=== PATIENT | female | born 1995 | race Hispanic/Latino ===

== ENCOUNTER 2018-09-25 11:06 | Day surgery (SDC) | payer OTHER | END 2018-09-25 11:07 | disposition home or self-care (01) | LOC: OR 11:06 ==

== ENCOUNTER 2020-03-09 23:17 | Outpatient (CLI) | payer OTHER ==
--- NOTE | 2020-03-10 01:17 | Ultrasound Report ---
BIOPHYSICAL PROFILE HISTORY: Decreased movement. FINDINGS: Biophysical profile was performed and is normal at 8/8. heart tones are 138 bpm. IMPRESSION: Normal biophysical profile. Signer Name: Glenn Nazario MD Signed: 03/10/2020 1:13 AM Workstation Name: [id number]
== END 2020-03-10 01:14 | disposition home or self-care (01) ==
LOC: TRG 23:17 → APU 23:22 → TRG 03-10 01:14
PROVIDERS: ATTEND Obstetrics & Gynecology
DX: O36.8130 Decreased fetal movements, third trimester, not applicable or unspecified (principal); Z3A.37 37 weeks gestation of pregnancy
CPT/HCPCS: 59025; 76819

== ENCOUNTER 2020-03-20 20:27 | Inpatient (IN) | payer OTHER ==
[2020-03-20] MEDS ORDERED: ACETAMINOPHEN 325 MG TAB PO PRN (21:03)
[2020-03-20] MEDS ORDERED: AMPICILLIN/NS 2 GM/100 ML 2 GM/100 ML BAG IV ONE (21:03)
[2020-03-20] MEDS ORDERED: TERBUTALINE 1 MG/1 ML INJ SUB-Q PRN (21:03)
[2020-03-20] MEDS ORDERED: LIDOCAINE (2%) 20 MG/1 ML VIAL 20 ML MDV INFILTRATI ONE (21:03)
[2020-03-20] MEDS ORDERED: fentaNYL 100 MCG/2 ML INJ IV PRN (21:03)
--- NOTE | 2020-03-20 21:21 | History and Physical Report ---
History of Present Illness Date of examination: 03/20/20 Date of admission: 03/20/20 20:27 Chief complaint: Induction of labor. History of present illness: 24 year old presents for scheduled induction of labor. Patient has received care at [facility] and records are available. LMP 06/20/19. EDC 03/26/2020. significant for the following: Elevated YANIRA, GBS positive. labs are as follows: A+, antibody screen negative, rubella equivocal, RPR nonreactive, HIV negative, hepatitis B surface antigen negative, gonorrhea negative, chlamydia negative, 1 hour diabetes screen 92, GBS positive. Past History Past Medical History: other (obesity) Past Surgical History: tonsillectomy, [facility] History: denies: abnormal PAP smear, chlamydia, gonorrhea, hepatitis B, hepatitis C, herpes, HIV, syphilis, trichomonas Family/Genetic History: hypertension Social history: , lives with family, full code. denies: smoking, alcohol abuse, prescription drug abuse, IV drug use - Obstetrical History Expected Date of Delivery: 03/26/20 Actual Gestation: 39 Week(s) 1 Day(s) : 6 Para: 4 Hx # Term Pregnancies: 4 Number of Pregnancies: 0 Spontaneous Abortions: 1 Induced : 0 Number of Living Children: 4 Medications and Allergies Allergies Allergy/AdvReac Type Severity Reaction Status Date / Time No Known Allergies Allergy Unverified 09/24/18 14:44 Home Medications Medication Instructions Recorded Confirmed Last Taken Type Acetaminophen [Tylenol] 2 cap PO Q4H PRN 09/24/18 03/20/20 03/19/20 11:00 History Vit-Fe Fumar-FA [ 1 tab PO QDAY 03/20/20 03/20/20 03/20/20 09:00 History Vitamin] Active Meds: Active Medications Acetaminophen (Tylenol) 650 mg PO Q4H PRN PRN Reason: Pain, Mild (1-3) Ephedrine Sulfate (Ephedrine Sulfate) 10 mg IV Q2M PRN PRN Reason: Hypotension Fentanyl (Sublimaze) 100 mcg IV Q2H PRN PRN Reason: Pain,Severe (7-10) LABOR PAIN Oxytocin/Sodium Chloride (Pitocin/Ns 30 Unit/500ml) 30 units in 500 mls @ 2 mls/hr IV TITR ALEKSANDRA; Protocol Lactated Ringer's (Lactated Ringers) 1,000 mls @ 125 mls/hr IV DIRECT ALEKSANDRA Oxytocin/Sodium Chloride (Pitocin/Ns 20 Unit/1000ml Drip) 20 units in 1,000 mls @ 125 mls/hr IV DIRECT ALEKSANDRA Ampicillin Sodium (Ampicillin/Ns 2 Gm/100 Ml) 2 gm in 100 mls @ 100 mls/hr IV ONCE ONE; Protocol Stop: 03/20/20 22:02 Ampicillin Sodium (Ampicillin/Ns 1 Gm/50 Ml) 1 gm in 50 mls @ 100 mls/hr IV Q4HR ALEKSANDRA; Protocol Terbutaline Sulfate (Brethine) 0.25 mg SUB-Q ONCE PRN PRN Reason: Hyperstimulation/Hypertonicity Review of Systems All systems: negative (irregular mild contraction) - Vital Signs Vital signs: Vital Signs Pulse BP 96 H 121/64 03/20/20 20:59 03/20/20 20:59 Temp Pulse Resp BP Pulse Ox 98.5 F 96 H 18 121/64 03/20/20 21:00 03/20/20 21:00 03/20/20 21:00 03/20/20 21:00 - Physical Exam Abdomen: Positive: normal appearance, soft. Negative: distention, tenderness, guarding, rigidity Genitourinary (Female): Positive: normal external genitalia, normal perenium. Negative: perineal/vulvar lesions (no lesions noted on exam under bright light upon admission) Vagina: Positive: normal moisture Uterus: Positive: enlarged. Negative: tender Anus/Rectum: Positive: normal perianal skin Extremities: Positive: normal - Obstetrical FHR: category 1 Uterine Contraction Monitor Mode: External Cervical Dilatation: 3 Cervical Effacement Percentage: 50 station: -3 Uterine Contraction Pattern: Irregular Uterine Contraction Intensity: Mild Results Result Diagrams: 03/20/20 21:25 All other labs normal. Assessment and Plan A: at 39 weeks, 1 day gestation. Scheduled IOL for polyhydramnios. GBS positive. P: Admit. EFM. GBS prophylaxis. US for EFW.
[2020-03-20 21:46] LABS: Hematocrit 32.9 % (30.3-42.9); Hemoglobin 10.8 gm/dl (10.1-14.3); Mean Corpuscular HGB Conc 33 % (30-34); Mean Corpuscular Volume 90 fl (79-97); Platelet Count 244 K/mm3 (140-440); Red Blood Count 3.68 M/mm3 (3.65-5.03); Red Cell Distribution Width 14.2 % (13.2-15.2)
[2020-03-20] MEDS ORDERED: OXYTOCIN DRIP 30 UNITS/500 ML BAG IV SCH (22:00)
[2020-03-20] MEDS: LACTATED RINGERS 1,000 ML IV SCH (22:05)
--- NOTE | 2020-03-20 23:01 | Ultrasound Report ---
Limited obstetrical ultrasound. HISTORY: Evaluate weight. FINDINGS: A single viable intrauterine in the cephalic position has heart tones are 1 56 bpm. The placenta is posteriorly located the fundus. Amniotic fluid index is 11.9 cm. Estimated weight is 7 lbs. 12 oz. IMPRESSION: Estimated weight of 7 lbs. 12 oz. Signer Name: Glenn Nazario MD Signed: 03/20/2020 10:57 PM Workstation Name: [id number]
--- NOTE | 2020-03-20 23:08 | Event Note ---
Date: 03/20/20 Patient reported she was LGA during her . US done upon admission tonight shows EFW 7 lb. 12 oz. YANIRA 11.9 cm. Patient had normal glucose screening during her . Discussed with patient risks of LGA including risks of shoulder dystocia and possible sequelae. Patient states she want to proceed with IOL and have a vaginal .
[2020-03-21] MEDS: AMPICILLIN/NS 1 GM/50 ML 1 GM/50 ML BAG IV SCH ×3 (02:47→11:12)
--- NOTE | 2020-03-21 06:00 | Event Note ---
Date: 03/21/20 SVE -2.
[2020-03-21] MEDS ORDERED: DEXMEDETOMIDINE 200 MCG/2 ML VIAL IV ONE (07:45)
--- NOTE | 2020-03-21 08:12 | Anesthesia Consultation ---
Anesthesia Consult and Med Hx Date of service: 03/21/20 - Airway Anesthetic Teeth Evaluation: Good ROM Head & Neck: Adequate Mental/Hyoid Distance: Adequate Mallampati Class: Class II Intubation Access Assessment: Probably Good - Pulmonary Exam CTA: Yes - Cardiac Exam Cardiac Exam: RRR - Pre-Operative Health Status ASA Pre-Surgery Classification: ASA2 Proposed Anesthetic Plan: Epidural - Pulmonary Hx Smoking: Yes Hx Asthma: No COPD: No Hx Pneumonia: No Hx Sleep Apnea: No - Cardiovascular System Hx Hypertension: No - Central Nervous System Hx Seizures: No Hx Psychiatric Problems: No - Gastrointestinal Hx Gastroesophageal Reflux Disease: No - Endocrine Hx Renal Disease: No Hx End Stage Renal Disease: No Hx Hypothyroidism: No Hx Hyperthyroidism: No - Hematic Hx Anemia: No Hx Sickle Cell Disease: No - Other Systems Hx Alcohol Use: No Hx Cancer: No
--- NOTE | 2020-03-21 08:12 | Anesthesia Day of Surgery ---
Anesthesia Day of Surgery - Day of Surgery Patient Examined: Yes Patient H&P Reviewed: Yes Patient is NPO: Yes Beta Blockers: No Cardiac Clearance: No Pulmonary Clearance: No Shaq's Test: N/A
--- NOTE | 2020-03-21 08:13 | Progress Note ---
Labor Epidural - Labor Epidural Start Time: 07:51 Stop Time: 07:59 Performed by:: ANNETTE BALBUENA Procedure: Patient is requesting a laboring epidural for laboring pain. Patient IDed, H&P reviewed, all questions and concerns were answered, and consent was signed. Timeout was performed at bedside. Patient in sitting position. Sterile prep and drape was performed. 3ml of 1% lidocaine skin wheal at L[3]- L [4]. 18- gauge Touhy epidural needle was advanced to loss of resistance with air technique. Negative CSF negative blood. Epidural catheter advanced to [12] centimeters. [-] Aspiration [-] test dose. Sterile dressing applied. Patient tolerated procedure.
[2020-03-21] MEDS ORDERED: NALOXONE 2 MG/2 ML INJ IV PRN (08:30)
[2020-03-21] MEDS ORDERED: ONDANSETRON 4 MG/2 ML INJ IV PRN ×2 (08:30→15:00)
[2020-03-21] MEDS: fentaNYL-BUPIV 2 MCG/ML-0.125% 200 MCG/100 ML BAG EPIDURAL SCH ×2 (08:46→08:50)
[2020-03-21] MEDS ORDERED: diphenhydrAMINE 50 MG/ML VIAL IV PRN (09:00)
[2020-03-21] MEDS ORDERED: NalbUPHINE 10 MG/1 ML INJ IV PRN (09:00)
--- NOTE | 2020-03-21 09:31 | Progress Note ---
Assessment and Plan A: IUP @ 39 2/7 Weeks Category I Tracing Early Labor GBS Positive Poor Pain Control P: Consult Anesthesia for Epidural Redose Continue Pitocin Augmentation Continue GBS Prophylaxis Multiple Maternal Position Changes Subjective - Subjective Date of service: 03/21/20 Patient reports: movement normal, contractions, other (Complains of poor pain control under epidural; states she still feels all her CTXs) Objective - Vital Signs Vital Signs: Vital Signs - 12hr 03/21/20 03/21/20 03/21/20 01:15 01:26 01:56 Temperature 98.1 F Pulse Rate 81 79 Respiratory 18 Rate Blood Pressure 106/56 106/62 Blood Pressure [Right] 03/21/20 03/21/20 03/21/20 02:26 02:56 03:27 Temperature Pulse Rate 76 76 92 H Respiratory Rate Blood Pressure 106/56 116/56 124/57 Blood Pressure [Right] 03/21/20 03/21/20 03/21/20 03:56 04:25 04:55 Temperature Pulse Rate 68 71 68 Respiratory Rate Blood Pressure 84/45 100/54 101/58 Blood Pressure [Right] 03/21/20 03/21/20 03/21/20 05:27 05:56 06:26 Temperature Pulse Rate 69 66 76 Respiratory Rate Blood Pressure 117/60 115/56 118/65 Blood Pressure [Right] 03/21/20 03/21/20 03/21/20 06:56 07:16 07:26 Temperature 99.3 F Pulse Rate 81 91 H 77 Respiratory 16 Rate Blood Pressure 114/66 109/67 Blood Pressure 114/66 [Right] 03/21/20 03/21/20 03/21/20 07:52 07:56 08:00 Temperature Pulse Rate 76 79 79 Respiratory Rate Blood Pressure 103/57 120/61 110/57 Blood Pressure [Right] 03/21/20 03/21/20 03/21/20 08:25 08:30 08:35 Temperature Pulse Rate 71 76 82 Respiratory Rate Blood Pressure 92/53 102/59 91/50 Blood Pressure [Right] 03/21/20 03/21/20 03/21/20 08:39 08:47 09:15 Temperature Pulse Rate 67 77 85 Respiratory Rate Blood Pressure 95/50 95/55 107/59 Blood Pressure [Right] - Exam Breasts: normal Cardiovascular: Regular rate Lungs: Clear to auscultation, Normal air movement Abdomen: Present: normal appearance, soft, normal bowel sounds Uterus: Present: normal, firm, fundal height above umbilicus FHR: category 1 Uterine Contraction Monitor Mode: External Cervical Dilatation: 4 (Vtx; Intact) Cervical Effacement Percentage: 60 station: -3 Uterine Contraction Frequency (min): 2-4 Uterine Contraction Pattern: Regular Uterine Tone Measurement Phase: Resting Uterine Contraction Intensity: Moderate Extremities: normal - Labs Labs: Abnormal Labs 03/20/20 21:25 WBC 13.6 H Laboratory Results - last 24 hr 03/20/20 03/20/20 21:25 21:25 WBC 13.6 H RBC 3.68 Hgb 10.8 Hct 32.9 MCV 90 MCH 30 MCHC 33 RDW 14.2 Plt Count 244 Blood Type A POSITIVE Antibody Screen Negative
[2020-03-21] MEDS: LACTATED RINGERS 1,000 ML IV SCH (10:10)
[2020-03-21] MEDS: ePHEDrine SULFATE 50 MG/1 ML INJ IV PRN ×2 (10:50→11:14)
--- NOTE | 2020-03-21 10:50 | Progress Note ---
Labor Epidural - Labor Epidural Start Time: 10:32 Stop Time: 10:40 Performed by:: ANNETTE BALBUENA Procedure: Patient is requesting replacement of CHELSI d/t inadequate analgesia. Previous dressing and epidural catheter were removed with catheter tip intact. H&P, labs were reviewed. All questions and concerns were answered. Informed consent was obtained. Timeout performed. Patient in sitting position on side of bed. Sterile prep and drape was performed. 3 mL 1% lidocaine skin wheal at L [2]-L [3]. 18-gauge Touhy epidural needle advanced to [id number] using air technique, [5cm]. 27-gauge spinal needle advanced, positive free-flowing CSF. Spinal dose of [Marcaine 3.375mg and NS 0.5cc]. Epidural catheter advanced to [11] cm. [-] Aspiration, [-] test dose. Sterile dressing applied. Patient tolerated procedure well.
--- NOTE | 2020-03-21 12:27 | Progress Note ---
Assessment and Plan A: IUP @ 39 2/7 Weeks Category I Tracing Active Labor GBS Positive P: AROM Continue Pitocin Augmentation Continue GBS Prophylaxis Multiple Maternal Position Changes Subjective - Subjective Date of service: 03/21/20 Patient reports: movement normal, contractions, other (Resting comfortably well under epidural) Objective - Vital Signs Vital Signs: Vital Signs - 12hr 03/21/20 03/21/20 03/21/20 01:15 01:26 01:56 Temperature 98.1 F Pulse Rate 81 79 Respiratory 18 Rate Blood Pressure 106/56 106/62 Blood Pressure [Right] 03/21/20 03/21/20 03/21/20 02:26 02:56 03:27 Temperature Pulse Rate 76 76 92 H Respiratory Rate Blood Pressure 106/56 116/56 124/57 Blood Pressure [Right] 03/21/20 03/21/20 03/21/20 03:56 04:25 04:55 Temperature Pulse Rate 68 71 68 Respiratory Rate Blood Pressure 84/45 100/54 101/58 Blood Pressure [Right] 03/21/20 03/21/20 03/21/20 05:27 05:56 06:26 Temperature Pulse Rate 69 66 76 Respiratory Rate Blood Pressure 117/60 115/56 118/65 Blood Pressure [Right] 03/21/20 03/21/20 03/21/20 06:56 07:16 07:26 Temperature 99.3 F Pulse Rate 81 91 H 77 Respiratory 16 Rate Blood Pressure 114/66 109/67 Blood Pressure 114/66 [Right] 03/21/20 03/21/20 03/21/20 07:52 07:56 08:00 Temperature Pulse Rate 76 79 79 Respiratory Rate Blood Pressure 103/57 120/61 110/57 Blood Pressure [Right] 03/21/20 03/21/20 03/21/20 08:25 08:30 08:35 Temperature Pulse Rate 71 76 82 Respiratory Rate Blood Pressure 92/53 102/59 91/50 Blood Pressure [Right] 03/21/20 03/21/20 03/21/20 08:39 08:47 09:15 Temperature Pulse Rate 67 77 85 Respiratory Rate Blood Pressure 95/50 95/55 107/59 Blood Pressure [Right] 03/21/20 03/21/20 03/21/20 09:47 10:16 10:33 Temperature Pulse Rate 75 76 81 Respiratory Rate Blood Pressure 105/60 97/57 107/55 Blood Pressure [Right] 03/21/20 03/21/20 03/21/20 10:40 10:42 10:44 Temperature Pulse Rate 84 82 76 Respiratory Rate Blood Pressure 109/61 110/57 97/59 Blood Pressure [Right] 03/21/20 03/21/20 03/21/20 10:46 10:56 11:18 Temperature Pulse Rate 87 84 76 Respiratory Rate Blood Pressure 97/54 99/58 105/58 Blood Pressure [Right] 03/21/20 03/21/20 11:48 12:18 Temperature Pulse Rate 88 90 Respiratory Rate Blood Pressure 99/55 113/59 Blood Pressure [Right] - Exam Cardiovascular: Regular rate Lungs: Normal air movement Abdomen: Present: normal appearance, soft Uterus: Present: normal, firm, fundal height above umbilicus FHR: category 1 Uterine Contraction Monitor Mode: External Cervical Dilatation: 7 (Copious amount of clear fluid upon AROM at 1219) Cervical Effacement Percentage: 70 station: -2 Uterine Contraction Frequency (min): 2-4 Uterine Contraction Pattern: Regular Uterine Tone Measurement Phase: Resting Uterine Contraction Intensity: Moderate Extremities: normal - Labs Labs: Abnormal Labs 03/20/20 21:25 WBC 13.6 H Laboratory Results - last 24 hr 03/20/20 03/20/20 21:25 21:25 WBC 13.6 H RBC 3.68 Hgb 10.8 Hct 32.9 MCV 90 MCH 30 MCHC 33 RDW 14.2 Plt Count 244 Blood Type A POSITIVE Antibody Screen Negative
[2020-03-21] MEDS ORDERED: MINERAL OIL 30 ML ORAL LIQD ONE (12:57)
[2020-03-21] MEDS ORDERED: LIDOCAINE (2%) 20 MG/1 ML VIAL 20 ML MDV INFILTRATI ONE (12:58)
[2020-03-21] MEDS ORDERED: WITCH HAZEL/ GLYCERIN PAD TP PRN (14:00)
--- NOTE | 2020-03-21 14:04 | Procedure Note ---
OB Delivery Note - Delivery Date of Delivery: 03/21/20 (1337) Surgeon: HAMZAH FLORES Estimated blood loss: 200cc - Vaginal Delivery presentation: vertex Delivery position: OA Intrapartum events: hydramnios (poly) Delivery induction: cervidil Delivery augmentation: rupture of membranes, pitocin Delivery monitor: external FHT, external uterine Route of delivery: Delivery placenta: spontaneous Delivery cord: 3 umbilical vessels Episiotomy: none Delivery laceration: none Anesthesia: epidural Delivery comments: of a live 8'0 female over a intact perineum under epidural anesthesia with Apgars of 9 and 9 at 1337 on 03/21/2020. Infant directly to maternal abd/chest, skin to skin contact. Spontaneous delivery of placenta complete and intact with [place] side presenting at 1341. Fundus is firm and midline located 4 below the U. Lochia is scant. Delayed cord clamping and cutting; Cord cut by the Father of the Baby. GBS prophylaxis x 4. Placenta discarded. - Infant A at 1 minute: 9 at 5 minutes: 9 Infant Gender: Female (8'0)
[2020-03-21] MEDS: OXYTOCIN 20 UNIT/1000ML DRIP 20 UNITS/1,000 ML BAG IV SCH ×2 (14:57→15:00)
[2020-03-21] MEDS ORDERED: diphenhydrAMINE 25 MG CAP PO PRN (15:00)
[2020-03-21] MEDS ORDERED: MINERAL OIL 30 ML ORAL LIQD PO ONE (15:29)
[2020-03-21] MEDS: IBUPROFEN 600 MG TAB PO SCH (19:55)
[2020-03-21] MEDS: HYDROcodone/ACETAMINOPHEN 5-325 MG TAB PO PRN (23:32)
[2020-03-22 02:19] LABS: Hematocrit 31.7 % (30.3-42.9); Hemoglobin 10.3 gm/dl (10.1-14.3)
[2020-03-22] MEDS: IBUPROFEN 600 MG TAB PO SCH (06:44)
[2020-03-22] MEDS: HYDROcodone/ACETAMINOPHEN 5-325 MG TAB PO PRN ×2 (09:17→15:04)
[2020-03-22] MEDS ORDERED: PRENATAL VIT27-FE FUMARATE-FOLIC ACID VIT TAB PO SCH (10:00)
--- NOTE | 2020-03-22 10:34 | Discharge Summary ---
Providers - Providers Date of Admission: 03/20/20 20:27 Date of discharge: 03/22/20 Attending physician: MARIAN VAIL JR, MD Primary care physician: MARIAN VAIL JR, MD Hospitalization Reason for admission: induction of labor Delivery: Episiotomy: none Laceration: none Other procedures: none complications: none Discharge diagnosis: IUP at term delivered, other (anemia) [place] baby: female Hospital course: See admission H & P; OB delivery summary and PP progress notes Condition at discharge: Good Disposition: DC-01 TO HOME OR SELFCARE - Discharge Diagnoses (1) Status post normal vaginal delivery Status: Acute (2) Anemia Status: Acute Qualifiers: Anemia type: iron deficiency Plan - Provider Discharge Summary Activity: routine, no sex for 6 weeks, no heavy lifting 4 weeks, no strenuous exercise Diet: other (Iron rich diet) Instructions: routine Additional instructions: [] Smoking cessation referral if applicable(refer to patient education folder for contact #) [] Refer to [facility]'s [facility] Booklet Call your doctor immediately for: * Fever > 100.5 * Heavy vaginal bleeding ( >1 pad per hour) * Severe persistent headache * Shortness of breath * Reddened, hot, painful area to leg or breast - Follow up plan Follow up: MARIAN VAIL JR, MD [Primary Care Provider] - 6 Weeks
[2020-03-22 14:15] VITALS: BP 110/78
[2020-03-22] MEDS ORDERED: MEASLES, MUMPS & RUBELLA 12,500 UNIT/0.5 ML VACCINE SUB-Q ONE (14:53)
--- NOTE | 2020-03-22 16:35 | Post Anesthesia Evaluation ---
- Post Anesthesia Evaluation Patient Participated: Yes Airway Patent: Yes Stable Respiratory Function: Yes Nausea/Vomiting: No Temp > 96.8F: Yes Pain Manageable: Yes Adequeate Hydration: Yes Anesthesia Complications: No Block Receding Appropriately: Yes Patient on Ventilator: No
== END 2020-03-22 15:35 | disposition home or self-care (01) | DRG 775 ==
LOC: LD 20:27 → OB 03-21 17:16
PROVIDERS: ADMIT Obstetrics & Gynecology; ATTEND Obstetrics & Gynecology
PROC: 10E0XZZ Delivery of Products of Conception, External Approach (ICD-10-PCS; principal; 2020-03-21)
PROC: 10907ZC Drainage of Amniotic Fluid, Therapeutic from Products of Conception, Via Natural or Artificial Opening (ICD-10-PCS; 2020-03-21)
PROC: 3E0R3BZ Introduction of Anesthetic Agent into Spinal Canal, Percutaneous Approach (ICD-10-PCS; 2020-03-21)
PROC: 00HU33Z Insertion of Infusion Device into Spinal Canal, Percutaneous Approach (ICD-10-PCS; 2020-03-21)
PROC: 3E033VJ Introduction of Other Hormone into Peripheral Vein, Percutaneous Approach (ICD-10-PCS; 2020-03-21)
PROC: 3E0134Z Introduction of Serum, Toxoid and Vaccine into Subcutaneous Tissue, Percutaneous Approach (ICD-10-PCS; 2020-03-22)
DX: O99.824 Streptococcus B carrier state complicating childbirth (principal); Z3A.39 39 weeks gestation of pregnancy; Z37.0 Single live birth; Z23 Encounter for immunization; O40.3XX0 Polyhydramnios, third trimester, not applicable or unspecified; O90.81 Anemia of the puerperium; D64.9 Anemia, unspecified
CPT/HCPCS: 36415; 76815; 76816; 85014; 85018; 85027; 86850; 86900; 86901; 90707; G0378; J0290; J2590; J3490; J7120; U0003-CS